=== PATIENT | female | born 1960 | race Caucasian/White ===

== ENCOUNTER 2019-09-14 15:39 | Emergency (ER) | payer BC, SELFPAY ==
[2019-09-14 15:53] VITALS: BP 140/79; PULSE 88; RESP 18; TEMP 36.4; O2SAT 100
--- NOTE | 2019-09-14 15:59 | ED.SKABFB ---
HPI - Skin/Abscess/Foreign Bdy General Chief complaint: Skin/Abscess/Foreign Body Stated complaint: sores on arms and face Time Seen by Provider: 09/14/19 16:00 Source: patient and RN notes reviewed History of Present Illness HPI narrative: Patient is a 59-year-old female that presents the urgent care with complaints of possible ringworm to the right wrist . Patient states that it showed up approximately 1 week ago and the pharmacist told her it was ringworm and to Lotromin use the on it. Patient states that she has been using it and the area has been improving. However patient states that she is also been using the cream on her lips and it is now causing a tingling burning feeling . Patient states that she feels that she now has ringworm on her lips . No other acute complaints. No acute distress noted. Patient read the plan of care. Related Data Home Medications Medication Instructions Recorded Confirmed No Home Medications 09/14/19 09/14/19 Allergies Allergy/AdvReac Type Severity Reaction Status Date / Time No Known Allergies Allergy Verified 09/14/19 15:52 Review of Systems Review of Systems: Narrative: CONSTITUTIONAL: Denies fever, chills, or sweats. EYES: Denies visual changes, redness, or discharge. ENT: Denies rhinorrhea, congestion, sore throat, or otalgia. CARDIOVASCULAR: Denies chest pain, palpitations, or edema. RESPIRATORY: Denies cough or dyspnea. GASTROINTESTINAL: Denies abdominal pain, nausea, vomiting, or diarrhea. GENITOURINARY: Denies dysuria or hematuria. SKIN: Reports of itchy tingling feeling surrounding the lips MUSCULOSKELETAL: Denies back pain, joint pain, or myalgia. NEUROLOGIC: Denies headache, numbness, or weakness. All other systems reviewed are negative, except as documented in HPI. PMFSH Comments At the time of my signature, I reviewed and agree with the nursing past medical, surgical, social, and family history. There is no relevant family history pertinent to the patient complaint. Exam Narrative: Exam Narrative: GENERAL: This is a well-nourished, well-developed patient, in no apparent distress. HEAD: normocephalic, atraumatic. EYES: PERRL. Sclera clear/white. Vision is grossly intact. EARS: External ears normal NOSE: External nose normal with no obvious nasal discharge THROAT: Mucous membranes moist NECK: Neck supple, non-tender without lymphadenopathy, masses or thyromegaly. SKIN: Very mild case of perioral dermatitis. Warm, intact with no suspicious lesions or rash, good texture and turgor. NEURO: awake, alert, and oriented to person, place and time. There were no obvious focal neurologic abnormalities. EXTREMITIES: No clubbing, cyanosis, or edema. Course Vital Signs Vital signs: Vital Signs Temperature 97.6 F 09/14/19 15:53 Pulse Rate 88 09/14/19 15:53 Respiratory Rate 18 09/14/19 15:53 Blood Pressure 140/79 09/14/19 15:53 Pulse Oximetry 100 09/14/19 15:53 Temperature 97.6 F 09/14/19 15:53 Pulse Rate 88 09/14/19 15:53 Respiratory Rate 18 09/14/19 15:53 Blood Pressure 140/79 09/14/19 15:53 Pulse Oximetry 100 09/14/19 15:53 Reviewed MDM - Skin/Abscess/Foreign Bdy MDM Narrative Medical decision making narrative: Advised the patient to stop using Lotrimin cream around her mouth. Make sure to wash her hands after cleaning at the Bowls and litter box. May continue to use the cream to the right wrist if necessary. Complete steroid regimen as prescribed. May use Claritin or Zyrtec prior to bedtime for itch relief. Avoid any medication [id number] with the pseudoephedrine. May use Vaseline to the lips if necessary. If you develop any increase in rash associated with numbness or tingling?go to the emergency room. Follow-up with your PCP within 2 to 5 days or for worsening symptoms or failure to improve. Differential Diagnosis Differential diagnosis: Likely abscess of skin or subcutaneous tissue, viral exanthem, cellulitis, eczema
== END 2019-09-14 16:22 | disposition home or self-care (01) ==
PROVIDERS: Emergency Provider Nurse Practitioner Family
DX: L71.0 Perioral dermatitis (principal)
CPT/HCPCS: 99213; G0463

== ENCOUNTER 2021-02-25 19:15 | Emergency (ER) | payer OTHER, SELFPAY ==
--- NOTE | 2021-02-25 19:19 | ED.GENADULT ---
HPI - General Adult General Chief complaint: Upper Respiratory Infection Stated complaint: Cough Time Seen by Provider: 02/25/21 19:19 Source: patient Mode of arrival: ambulatory Limitations: no limitations History of Present Illness HPI narrative: 60-year-old female patient presents to the [facility] with complaints of just feeling very tired and having some shortness of breath. Patient states she has been feeling like this for the past 2 weeks. Patient states she attributes that to her working 60-hour weeks. Patient denies any medical history. Patient states the only medication she takes is supplements. Patient states that her recently got over some type of virus. Patient states she has had a dry cough. Denies any other sick symptoms. Related Data Home Medications Medication Instructions Recorded Confirmed No Home Medications 09/14/19 09/14/19 Allergies Allergy/AdvReac Type Severity Reaction Status Date / Time No Known Allergies Allergy Verified 06/29/20 16:14 Review of Systems Review of Systems: CONSTITUTIONAL: Denies fever, chills, or sweats. Positive fatigue EYES: Denies visual changes, redness, or discharge. ENT: Denies rhinorrhea, congestion, sore throat, or otalgia. CARDIOVASCULAR: Denies chest pain, palpitations, or edema. RESPIRATORY: Positive cough with dyspnea. GASTROINTESTINAL: Denies abdominal pain, nausea, vomiting, or diarrhea. GENITOURINARY: Denies dysuria or hematuria. SKIN: Denies rash or itching. MUSCULOSKELETAL: Denies back pain, joint pain, or myalgia. NEUROLOGIC: Positive headache, denies numbness, or weakness. PSYCHIATRIC: Denies anxiety or depression. [facility] Past Medical History Medical History (Updated 02/25/21 @ 20:04 by SHIRA Renae) Influenza A Postmenopausal Comments At the time of my signature I agree with nursing past medical history, surgical, social, and family history. There is no relevant family history pertinent to the presenting complaint. Exam Narrative: GENERAL: Well-appearing, well-nourished, and in no acute distress. HEAD: Normocephalic, atraumatic. EYES: PERRLA and EOMI. ENT: Nares clear, no rhinorrhea or epistaxis. Mucous membranes moist. NECK: Supple. No lymphadenopathy CHEST: Decreased lung sounds noted to bilateral upper lobes. No respiratory distress. Patient able to talk in clear complete sentences no tripoding. HEART: Regular rate and rhythm. No murmur heard. Normal peripheral pulses. ABDOMEN: Soft, nontender, nondistended, normal active bowel sounds. EXTREMITIES: Normal range of motion. No edema. SKIN: Warm, dry, no rash. NEURO: No focal deficits. Alert and oriented x3. Course Vital Signs Vital signs: Vital Signs Temperature 35.8 C L 02/25/21 19:39 Pulse Rate 111 H 02/25/21 19:39 Respiratory Rate 16 02/25/21 19:39 Blood Pressure 130/70 02/25/21 19:39 Temperature 35.8 C L 02/25/21 19:39 Pulse Rate 111 H 02/25/21 19:39 Respiratory Rate 16 02/25/21 19:39 Blood Pressure 130/70 02/25/21 19:39 Vital signs reviewed Room air oxygen initially 77% Patient was placed on 6 L oxygen and was raised to 89%. Transfer Transfered to: [facility] Transportation: ALS Transfer rationale: Low oxygen saturation shortness of breath Accepting physician: Attempted to call [facility] was disconnected multiple times. Unable to get a hold of physician. Patient was sent by EMS. Medical Decision Making Differential Diagnosis Differential Diagnosis: Differential diagnosis: Allergic rhinitis, chronic sinusitis, tonsillitis, acute sinusitis, infectious mononucleosis, seasonal influenza, pertussis, diphtheria, meningococcal disease, viral syndrome, viral bronchitis, RSV, COVID-19 Cussed with patient that given that her oxygen saturations are low we will need to send her to the emergency department for further evaluation and treatment. Patient was placed on 6 L nasal cannula. EMS was called. Attempted
[2021-02-25 19:35] VITALS: PULSE 111; RESP 26; O2SAT 74
[2021-02-25 19:39] VITALS: BP 130/70; PULSE 111; RESP 16; TEMP 35.8
--- NOTE | 2021-02-25 20:12 | PC.NURSE ---
report given to [facility] ([facility]), report called to Hamida at [facility] and accepting ERP provided.
== END 2021-02-25 20:16 | disposition short-term general hospital (02) ==
PROVIDERS: Emergency Provider Nurse Practitioner Family; PCP Family Medicine
DX: R09.02 Hypoxemia (principal)
CPT/HCPCS: 99215; G0463